=== PATIENT | male | born 2000 | race African-American/Black ===

== ENCOUNTER 2022-03-06 16:57 | Emergency (ER) | payer OTHER, SELFPAY ==
--- OUTSIDE RECORDS SUMMARY | 2022-03-06 16:59 | XMS REPORT | Continuity of Care Document ---
:2000 Author Organization [facility] t Address [address] [place] [address] Care Team Providers Name Role Phone ISABELLA Primary Care Physician Unavailable Easton LOUIS Attending Clinician Unavailable Payers Payer Name Policy Type Policy Number Effective Date Expiration Date [facility] hospital [id number] 2016 CHOICE CHIP 00:00:00 Problems This patient has no known problems. Allergies, Adverse Reactions, Alerts Allergy Allergy Status Severity Reaction(s) Onset Inactive Treating Comm ents Source Name Type Date Date Clinician NO KNOWN Drug Active NPI:183 ALLERGIE Class [id number] S Medications This patient has no known medications. Procedures This patient has no known procedures. Encounters Start End Encounter Admission Attending Care Care Encounter Source Date/Time Date/Time Type Type Clinicians Facility Department ID 2021-01-29 2021-01-29 [facility] [id number] NPI:[id number] 16:20:00 16:23:24 CARLA [id number] 1 2021-01-29 2021-01-29 [facility] [id number] NPI:[id number] 13:20:00 13:20:00 CARLA [id number] 1 2021-01-28 2021-01-28 Outpatient [facility] [id number] NPI:[id number] 15:45:00 15:45:00 [id number] 2020-12-31 2020-12-31 [facility] [id number] NPI:[id number] 14:30:00 14:30:00 CARLA [id number] 1 Results This patient has no known results.
[2022-03-06] MEDS ORDERED: ONDANSETRON 4 MG/2 ML VIAL ONE (17:20)
[2022-03-06] MEDS ORDERED: GLUCAGON 1 MG/VIAL ONE (17:20)
[2022-03-06 17:21] LABS: Absolute Lymphocytes (CBC) 2.6 K/uL (0.7-4.9); Hematocrit 40.7 % (39.6-49.0); Lymphocytes % 31.9 % (15.3-44.8); MPV 8.7 fL (7.6-11.3)
[2022-03-06 17:37] LABS: Albumin 3.9 g/dL (3.4-5.0); Bilirubin Total 0.4 mg/dL (0.2-1.0); Potassium 3.9 mmol/L (3.5-5.1); Protein, Total 7.3 g/dL (6.4-8.2)
--- NOTE | 2022-03-06 17:53 | RAD REPORT ---
EXAM DESCRIPTION: RAD - Neck Soft Tissue - 03/06/2022 5:45 pm CLINICAL HISTORY: Foreign body sensation FINDINGS: A radiopaque foreign body is not seen. Prevertebral soft tissues normal. No gross abnormality the airway visualized
[2022-03-06] MEDS ORDERED: NA CHLORIDE 0.9% 1,000 ML ONE (19:13)
--- NOTE | 2022-03-06 20:03 | EDPHYS ---
Physician Documentation [facility] Name: Rosanna Dumont Age: 21 yrs Sex: Male : 2000 Arrival Date: 03/06/2022 Time: 17:00 Bed 18 Private MD: ED Physician Santiago Zafar HPI: 03/06 20:00 This 21 yrs old Black Male presents to ER via EMS with complaints of Foreign body jmm sensation. 20:00 The patient presents with sore throat, dysphagia. Is a 21-year-old male with history of jmm hypertension the presents emerged department with complaints of foreign body sensation after swallowing a grill. Patient has shortness of breath was unable to tolerate fluids by mouth.. Historical: - Allergies: 17:03 No Known Allergies; jh6 - PMHx: 17:03 Hypertensive disorder; 6 - Immunization history:: Adult Immunizations up to date. - Social history:: Smoking status: Patient denies any tobacco usage or history of. ROS: 20:00 Constitutional: Negative for fever, chills, and weight loss, Cardiovascular: Negative jmm for chest pain, palpitations, and edema, Respiratory: Negative for shortness of breath, cough, wheezing, and pleuritic chest pain. 20:00 ENT: Positive for sore throat. 20:00 All other systems are negative. Exam: 20:00 Constitutional: This is a well developed, well nourished patient who is awake, alert, jmm and in no acute distress. Head/Face: atraumatic. Eyes: EOMI, no conjunctival erythema appreciated ENT: Moist Mucus Membranes Neck: Trachea midline, Supple Chest/axilla: Normal chest wall appearance and motion. Cardiovascular: Regular rate and rhythm. No edema appreciated Respiratory: Normal respirations, no respiratory distress appreciated Abdomen/GI: Non distended, soft Back: Normal ROM Skin: General appearance color normal MS/ Extremity: Moves all extremities, no obvious deformities appreciated, no edema noted to the lower extremities Neuro: Awake and alert Psych: Behavior is normal, Mood is normal, Patient is cooperative and pleasant Vital Signs: 17:01 BP 145 / 80; Pulse 94; Resp 18; Temp 98.9(TE); Pulse Ox 96% on R/A; Weight 77.11 kg; 6 Height 5 ft. 9 in. (175.26 cm); Pain 3/10; 17:32 BP 141 / 93; Pulse 80; Resp 17; Pulse Ox 100% ; jh6 20:14 BP 109 / 82; Pulse 77; Resp 16; Pulse Ox 100% on R/A; kd3 17:01 Body Mass Index 25.10 (77.11 kg, 175.26 cm) [facility] MDM: 17:05 Patient medically screened. [facility] 20:00 Data reviewed: vital signs, nurses notes. Counseling: I had a detailed discussion with [facility] the patient and/or guardian regarding: the historical points, exam findings, and any diagnostic results supporting the discharge/admit diagnosis, lab results, radiology results, the need for outpatient follow up, to return to the emergency department if symptoms worsen or persist or if there are any questions or concerns that arise at home. ED course: Symptoms have improved but patient still has a foreign body sensation. I discussed the patient with Dr. Waldron who will see the patient in clinic tomorrow morning.. 03/06 17:06 Order name: CBC with Diff; Complete Time: 17:28 [facility] 03/06 17:06 Order name: CMP; Complete Time: 17:40 [facility] 03/06 17:06 Order name: Lipase; Complete Time: 17:40 [facility] 03/06 17:07 Order name: Neck Soft Tissue XRAY; Complete Time: 17:55 [facility] 03/06 18:57 Order name: SARS-COV-2 RT PCR (Document "Date of Onset" if Symptomatic) [facility] 03/06 17:06 Order name: IV Saline Lock; Complete Time: 17:37 [facility] 03/06 17:06 Order name: Labs collected and sent; Complete Time: 17:37 [facility] Administered Medications: 17:21 Drug: GlucaGen (glucagon) 1 mg Route: IVP; Site: right antecubital; 6 20:15 Follow up: Response: No adverse reaction kd3 17:22 Drug: Zofran (Ondansetron) 4 mg Route: IVP; Site: right antecubital; 6 20:15 Follow up: Response: No adverse reaction kd3 19:13 Drug: NS 0.9% 1000 ml Route: IV; Rate: 1 bolus; Site: right antecubital; kd3 20:15 Follow up: Response: No adverse reaction; IV Status: Completed infusion kd3 Disposition: 21:27 Co-signature as Attending Physician, Santiago Zafar DO I was immediately available on-site ms3 in the Emergency Department for consultation in the care of the patient.. Disposition Summary: 03/06/22 20:02 Discharge Ordered Location: Home [facility] Condition: Stable jm Diagnosis - Food Bolus, foreign body sensation jmm Followup: jmm - With: Fatoumata Waldron MD - When: 2 - 3 days - Reason: Recheck today's complaints, Continuance of care, Re-evaluation by your physician Discharge Instructions: - Discharge Summary Sheet [facility] - Swallowed Foreign Body, Adult jm Forms: - Medication Reconciliation Form [facility] - Thank You Letter [facility] - Antibiotic Education [facility] - Prescription Opioid Use [facility] Signatures: Dispatcher [employer] EDMS Sathya Sharp PA PA jmm Sims, Marcus, DO DO ms3 Bobbi To, RN RN kd3 Chacha Patel RN RN jh6
--- NOTE | 2022-03-06 20:03 | ER ---
Nurse's Notes [facility] Name: Rosanna Dumont Age: 21 yrs Sex: Male : 2000 Arrival Date: 03/06/2022 Time: 17:00 Bed 18 Private MD: Diagnosis: Food Bolus, foreign body sensation Presentation: 03/06 17:01 Chief complaint: Patient states: pt stated that he was chewing a hand full of grapes jh6 and one fell back in his throat. was able to speak after coughing but now is unable to swallow spit and feels likes "something " is stuck. Coronavirus screen: Vaccine status: Patient reports being unvaccinated. Ebola Screen: Patient negative for fever greater than or equal to 101.5 degrees Fahrenheit, and additional compatible Ebola Virus Disease symptoms Patient denies exposure to infectious person. Patient denies travel to an Ebola-affected area in the 21 days before illness onset. Initial Sepsis Screen: Does the patient meet any 2 criteria? No. Patient's initial sepsis screen is negative. Does the patient have a suspected source of infection? No. Patient's initial sepsis screen is negative. Risk Assessment: Do you want to hurt yourself or someone else? Patient reports no desire to harm self or others. Onset of symptoms was March 06, 2022. 17:01 Method Of Arrival: EMS: [facility] 17:01 Acuity: STEVIE 2 [facility] Historical: - Allergies: 17:03 No Known Allergies; 6 - PMHx: 17:03 Hypertensive disorder; [facility] - Immunization history:: Adult Immunizations up to date. - Social history:: Smoking status: Patient denies any tobacco usage or history of. Screenin:05 Abuse screen: Denies threats or abuse. Nutritional screening: No deficits noted. [facility] Tuberculosis screening: No symptoms or risk factors identified. Fall Risk None identified. Assessment: 17:04 General: Appears in no apparent distress. Behavior is calm, cooperative. Pain: [facility] Complains of pain in thyroid cartilage Pain currently is 3 out of 10 on a pain scale. Quality of pain is described as tender, Pain began suddenly, Is continuous, Aggravated by eating, drinking. EENT: Reports difficulty swallowing pain when swallowing. 17:33 Reassessment: Patient is alert, oriented x 3, equal unlabored respirations, skin jh6 warm/dry/pink. pt states that he thinks the grape moved and is able to swallow his spit. pt 4oz of water to try and wallow and was able to do so without vomiting. 19:16 General: Appears in no apparent distress. Behavior is calm, cooperative. Neuro: Level kd3 of Consciousness is awake, alert, obeys commands, Oriented to person, place. Cardiovascular: Patient's skin is warm and dry. Respiratory: Airway is patent Trachea midline Respiratory effort is even, unlabored, Respiratory pattern is regular, symmetrical. Vital Signs: 17:01 BP 145 / 80; Pulse 94; Resp 18; Temp 98.9(TE); Pulse Ox 96% on R/A; Weight 77.11 kg; 6 Height 5 ft. 9 in. (175.26 cm); Pain 3/10; 17:32 BP 141 / 93; Pulse 80; Resp 17; Pulse Ox 100% ; jh6 20:14 BP 109 / 82; Pulse 77; Resp 16; Pulse Ox 100% on R/A; kd3 17:01 Body Mass Index 25.10 (77.11 kg, 175.26 cm) [facility] ED Course: 17:00 Patient arrived in ED. [facility] 17:00 Chacha Patel, PENG is Primary Nurse. [facility] 17:01 Sathya Sharp PA is PHCP. [facility] 17:01 Santiago Zafar DO is Attending Physician. [facility] 17:03 Triage completed. [facility] 17:03 Arm band placed on left wrist. Patient placed in an exam room, on a stretcher, on 6 oxygen, on monitoring tech, on pulse oximetry. 17:05 Bed in low position. Call light in reach. Side rails up X 1. Adult w/ patient. 6 17:05 No provider procedures requiring assistance completed. 6 17:46 Neck Soft Tissue XRAY In Process Unspecified. EDMS 19:19 Primary Nurse role handed off by Chacha Patel, PENG mw2 20:02 Fatoumata Waldron MD is Referral Physician. [facility] 20:12 Bobbi To RN is Primary Nurse. kd3 20:13 IV discontinued, intact, bleeding controlled, No redness/swelling at site. Pressure kd3 dressing applied. Administered Medications: 17:21 Drug: GlucaGen (glucagon) 1 mg Route: IVP; Site: right antecubital; jh6 20:15 Follow up: Response: No adverse reaction kd3 17:22 Drug: Zofran (Ondansetron) 4 mg Route: IVP; Site: right antecubital; jh6 20:15 Follow up: Response: No adverse reaction kd3 19:13 Drug: NS 0.9% 1000 ml Route: IV; Rate: 1 bolus; Site: right antecubital; kd3 20:15 Follow up: Response: No adverse reaction; IV Status: Completed infusion kd3 Medication: 20:14 VIS not applicable for this client. kd3 Outcome: 20:02 Discharge ordered by . jyoti 20:12 Discharged to home ambulatory. kd3 20:12 Condition: stable 20:12 Condition: stable 20:12 Discharge instructions given to patient, Instructed on discharge instructions, follow up and referral plans. Demonstrated understanding of instructions, follow-up care. 20:15 Patient left the ED. kd3 Signatures: Dispatcher [employer] EDMS Sathya Sharp PA PA jmm [place], MyKena mw2 Bobbi To RN RN kd3 Chacha Patel RN RN jh6
[2022-03-06 21:20] VITALS: TEMP 98.9
[2022-03-06 21:27] VITALS: O2SAT 100
[2022-03-06 21:32] VITALS: BP 109/82
== END 2022-03-06 20:15 | disposition home or self-care (01) ==
LOC: ER 16:57
DX: T18.128A Food in esophagus causing other injury, initial encounter (principal); R07.0 Pain in throat; I10 Essential (primary) hypertension; Z20.822 Contact with and (suspected) exposure to COVID-19
CPT/HCPCS: 36415; 70360; 80053; 83690; 85025; 96361; 96374; 96375; 99284; J1610; J2405; J7030; U0003